=== PATIENT | male | born 1965 | race Caucasian/White ===

== ENCOUNTER 2021-01-09 21:09 | Inpatient (IN) | payer BC ==
[2021-01-09] MEDS ORDERED: Aspirin Chewable 81 MG TAB ONE (21:40)
[2021-01-09 21:44] LABS: #Eosinphils 0.2 10x3/uL (0.0-0.5); #Monocytes 0.6 10x3/uL (0.0-1.1); #Neutrophils 4.6 10x3/uL (1.5-8.4); %Basophils 0.4 % (0.0-2.0); %Eosinophils 3.3 % (0.0-6.0); %Lymphocytes 22.8 % (18.0-47.0); %Monocytes 8.3 % (0.0-10.0); %Neutrophils 64.9 % (40.0-75.0); Hemoglobin 14.2 g/dL (13.5-17.5); Mean Corpuscular HGB CONC 34.1 g/dL (32.0-36.0); Mean Corpuscular Hemoglobin 29.8 pg (27.0-33.0); Mean Corpuscular Volume 87.6 fl (81.2-95.1); Platelet Count 290 10x3/uL (150-450); RBC Distribution Width 12.2 % (11.5-14.5); Red Blood Cell (RBC) Count 4.76 10x6/uL (4.32-5.72); White Blood Cell (WBC) Count 7.1 10x3/uL (3.5-10.5)
[2021-01-09] MEDS ORDERED: Nitroglycerin 2% Ointment 1 INCH/1 GM Packet ONE (21:46)
[2021-01-09 21:54] LABS: ALT (SGPT) 26 U/L (8-55); AST (SGOT) 17 U/L (5-34); Alkaline Phosphatase 78 U/L (40-110); Anion Gap 12 mmol/L (10-20); BUN (Urea Nitrogen) 14 mg/dL (8.4-25.7); Bilirubin, Total 0.6 mg/dL (0.2-1.2); Calc. Creatinine Clearance 0 mL/min (70-130); Calcium 8.7 mg/dL (7.8-10.44); Carbon Dioxide 25 mmol/L (22-29); Chloride 104 mmol/L (98-107); Globulin 2.9 g/dL (2.4-3.5); Glucose 302 mg/dL (70-105); Lipase 37 U/L (8-78); Potassium 4.4 mmol/L (3.5-5.1); Protein, Total 6.9 g/dL (6.0-8.3); Sodium 137 mmol/L (136-145)
[2021-01-09] MEDS ORDERED: Nitroglycerin 0.4 MG TAB (25 Tab Bottle) SL PRN (23:57)
[2021-01-10] MEDS ORDERED: HumaLOG 300 UNITS/3 ML VIAL SC PRN ×3 (00:12→10:19)
[2021-01-10] MEDS ORDERED: Dextrose 50% Abboject 50 ML SYRINGE SLOW IVP PRN (00:12)
[2021-01-10] MEDS ORDERED: Dextrose 5% in Water 1,000 ML IV PRN (00:12)
[2021-01-10 00:58] VITALS: BMI 30.4
[2021-01-10] MEDS ORDERED: metFORMIN 500 MG TAB PO SCH (01:15)
[2021-01-10] MEDS ORDERED: Carvedilol 6.25 MG TAB PO SCH ×2 (01:15→08:00)
[2021-01-10] MEDS ORDERED: TICAGRELOR 90 MG TABLET PO SCH (01:15)
[2021-01-10] MEDS ORDERED: Rosuvastatin 20 MG TAB PO SCH ×2 (01:15→21:00)
[2021-01-10] MEDS ORDERED: Nitroglycerin 2% Ointment 1 INCH/1 GM Packet TOP SCH (02:00)
[2021-01-10 04:24] LABS: #Eosinphils 0.2 10x3/uL (0.0-0.5); #Monocytes 0.5 10x3/uL (0.0-1.1); #Neutrophils 3.1 10x3/uL (1.5-8.4); %Basophils 0.5 % (0.0-2.0); %Eosinophils 4.2 % (0.0-6.0); %Lymphocytes 30.6 % (18.0-47.0); %Monocytes 9.3 % (0.0-10.0); Mean Corpuscular Hemoglobin 29.8 pg (27.0-33.0); Mean Corpuscular Volume 87.6 fl (81.2-95.1); Platelet Count 267 10x3/uL (150-450); RBC Distribution Width 12.3 % (11.5-14.5); Red Blood Cell (RBC) Count 4.36 10x6/uL (4.32-5.72); White Blood Cell (WBC) Count 5.7 10x3/uL (3.5-10.5)
[2021-01-10 04:47] LABS: Anion Gap 12 mmol/L (10-20); BUN (Urea Nitrogen) 16 mg/dL (8.4-25.7); Calc. Creatinine Clearance 117 mL/min (70-130); Calcium 8.4 mg/dL (7.8-10.44); Carbon Dioxide 23 mmol/L (22-29); Cardiac Risk 3.5 (Less than 4.5); Chloride 107 mmol/L (98-107); Cholesterol 122 mg/dl (< 200 Desired); Glucose 335 mg/dL (70-105); HDL Cholesterol 35 mg/dL (>60 Neg Risk); LDL Cholesterol, Calculated 42 mg/dL; Potassium 4.1 mmol/L (3.5-5.1); Sodium 138 mmol/L (136-145); Triglycerides 226 mg/dL (Less than 150)
[2021-01-10 04:53] LABS: Troponin I Less than 0.010 ng/mL (< 0.028)
[2021-01-10] MEDS ORDERED: HumaLOG 300 UNITS/3 ML VIAL SC SCH (05:30)
[2021-01-10] MEDS: Acetaminophen 325 MG TAB PO PRN ×3 (06:37→20:28)
[2021-01-10] MEDS: metFORMIN 500 MG TAB PO SCH ×2 (09:43→16:03)
[2021-01-10] MEDS: Carvedilol 6.25 MG TAB PO SCH ×2 (09:43→16:03)
[2021-01-10] MEDS: Nitroglycerin 2% Ointment 1 INCH/1 GM Packet TOP SCH ×3 (09:43→20:30)
[2021-01-10] MEDS: Aspirin Chewable 81 MG TAB PO SCH (09:43)
[2021-01-10] MEDS: TICAGRELOR 90 MG TABLET PO SCH ×2 (09:44→20:28)
[2021-01-10] MEDS: Enoxaparin Sodium 40 MG/0.4 ML SYRINGE SC SCH (09:44)
[2021-01-10] MEDS: Sodium Chloride 0.9% 1,000 ML IV SCH (16:02)
[2021-01-10] MEDS ORDERED: predniSONE 20 MG TAB PO SCH (18:00)
[2021-01-10 18:25] LABS: SARS-CoV-2 PCR by NAA Not Detected (NotDetected)
[2021-01-10] MEDS ORDERED: Lantus 1000 UNITS/10 ML VIAL SC SCH (21:00)
[2021-01-11] MEDS: Sodium Chloride 0.9% 1,000 ML IV SCH ×2 (01:23→08:29)
[2021-01-11] MEDS: Aspirin Chewable 81 MG TAB PO SCH (06:07)
[2021-01-11] MEDS: TICAGRELOR 90 MG TABLET PO SCH (06:07)
[2021-01-11] MEDS: Carvedilol 6.25 MG TAB PO SCH (06:08)
[2021-01-11] MEDS: metFORMIN 500 MG TAB PO SCH ×2 (07:53→14:44)
[2021-01-11] MEDS: Nitroglycerin 2% Ointment 1 INCH/1 GM Packet TOP SCH ×2 (07:53→14:44)
[2021-01-11] MEDS: Enoxaparin Sodium 40 MG/0.4 ML SYRINGE SC SCH (07:54)
[2021-01-11] MEDS ORDERED: Famotidine/PF 20 mg/2ml Vial SLOW IVP SCH (08:00)
[2021-01-11] MEDS ORDERED: diphenhydrAMINE 25 MG CAP PO SCH (08:00)
[2021-01-11] MEDS ORDERED: predniSONE 20 MG TAB PO SCH (08:00)
[2021-01-11 08:23] LABS: Hemoglobin 13.1 g/dL (13.5-17.5); Mean Corpuscular HGB CONC 34.3 g/dL (32.0-36.0); Mean Corpuscular Hemoglobin 29.6 pg (27.0-33.0); Mean Corpuscular Volume 86.4 fl (81.2-95.1); Mean Platelet Volume 9.7 fl (7.4-10.4); Platelet Count 271 10x3/uL (150-450); RBC Distribution Width 11.9 % (11.5-14.5); Red Blood Cell (RBC) Count 4.42 10x6/uL (4.32-5.72); White Blood Cell (WBC) Count 10.2 10x3/uL (3.5-10.5)
[2021-01-11 08:29] LABS: Prothrombin Time 11.5 sec (9.5-12.1)
[2021-01-11 08:30] LABS: Anion Gap 14 mmol/L (10-20); BUN (Urea Nitrogen) 17 mg/dL (8.4-25.7); Calc. Creatinine Clearance 138 mL/min (70-130); Calcium 8.4 mg/dL (7.8-10.44); Carbon Dioxide 22 mmol/L (22-29); Chloride 108 mmol/L (98-107); Glucose 187 mg/dL (70-105); Potassium 4.2 mmol/L (3.5-5.1); Sodium 140 mmol/L (136-145)
[2021-01-11] MEDS ORDERED: Lidocaine 1% PF 5 ML VIAL ONE (08:37)
[2021-01-11] MEDS ORDERED: Nitroglycerin 50 MG/250 ML BOT 250 ML ONE (08:37)
[2021-01-11] MEDS ORDERED: Heparin 10,000 UNITS/ 10 ML VIAL ONE (08:37)
[2021-01-11] MEDS ORDERED: Midazolam HCl 5 mg/5 ml Vial ONE (08:38)
[2021-01-11] MEDS ORDERED: Sodium Chloride 0.9% 1,000 ML ONE (08:39)
[2021-01-11] MEDS ORDERED: Fentanyl 100 MCG/2 ML VIAL ONE (08:39)
[2021-01-11] MEDS ORDERED: Adenosine 6 MG/2 ML VIAL ONE (08:39)
[2021-01-11] MEDS ORDERED: Verapamil 5 MG/2 ML VIAL ONE (08:39)
[2021-01-11] MEDS ORDERED: Bivalirudin 250 MG VIAL ONE (08:39)
[2021-01-11] MEDS ORDERED: Acetaminophen/Codeine 30-300mg Tablet PO PRN ×2 (11:10)
[2021-01-11] MEDS ORDERED: Sodium Chloride 0.9% 200 ML IV PRN (11:10)
[2021-01-11] MEDS ORDERED: Nitroglycerin 0.4 MG TAB (25 Tab Bottle) SL PRN (11:10)
[2021-01-11 15:42] VITALS: BP 118/70; TEMP 98
[2021-01-11] MEDS ORDERED: Ezetimibe 10 MG TAB PO SCH (21:00)
== END 2021-01-11 18:38 | disposition home or self-care (01) | DRG 247 ==
LOC: CSHERS 21:09 → CSHTELE 01-10 00:54 → OBSVTOIN 01-10 12:38
PROVIDERS: ADMIT Family Medicine; ATTEND Internal Medicine
PROC: 4A023N7 Measurement of Cardiac Sampling and Pressure, Left Heart, Percutaneous Approach (ICD-10-PCS; principal; 2021-01-11)
PROC: 027135Z Dilation of Coronary Artery, Two Arteries with Two Drug-eluting Intraluminal Devices, Percutaneous Approach (ICD-10-PCS; 2021-01-11)
PROC: B2111ZZ Fluoroscopy of Multiple Coronary Arteries using Low Osmolar Contrast (ICD-10-PCS; 2021-01-11)
PROC: B2161ZZ Fluoroscopy of Right and Left Heart using Low Osmolar Contrast (ICD-10-PCS; 2021-01-11)
PROC: B241ZZ3 Ultrasonography of Multiple Coronary Arteries, Intravascular (ICD-10-PCS; 2021-01-11)
DX: I25.110 Atherosclerotic heart disease of native coronary artery with unstable angina pectoris (principal); Q24.5 Malformation of coronary vessels; Z20.822 Contact with and (suspected) exposure to COVID-19; I10 Essential (primary) hypertension; R78.5 Finding of other psychotropic drug in blood; Z95.5 Presence of coronary angioplasty implant and graft; Z88.8 Allergy status to other drugs, medicaments and biological substances; Z91.013 Allergy to seafood; I34.0 Nonrheumatic mitral (valve) insufficiency; I25.2 Old myocardial infarction; E11.65 Type 2 diabetes mellitus with hyperglycemia; Z79.4 Long term (current) use of insulin; Z79.899 Other long term (current) drug therapy
CPT/HCPCS: 36415; 36416; 71045; 80048; 80053; 80061; 83690; 83735; 84484; 85025; 85027; 85347; 85610; 92928; 92978; 92979; 93005; 93010; 93306; 93458; 94760; 96372; 99152; 99153; C1753; C1887; C9600; G0378; J0153; J0583; J1644; J1650; J1815; J2250; J3010; J7050; J7512; Q0163; S0028; U0003; U0005

== ENCOUNTER 2022-05-22 11:02 | Observation (INO) | payer BC ==
[2022-05-22 11:56] LABS: #Basophils 0.1 10x3/uL (0.0-0.2); #Eosinphils 0.2 10x3/uL (0.0-0.5); #Monocytes 0.4 10x3/uL (0.0-1.1); #Neutrophils 3.6 10x3/uL (1.5-8.4); %Basophils 0.9 % (0.0-2.0); %Eosinophils 3.1 % (0.0-6.0); %Monocytes 7.6 % (0.0-10.0); %Neutrophils 62.2 % (40.0-75.0); Hemoglobin 15.3 g/dL (13.5-17.5); Mean Corpuscular HGB CONC 34.9 g/dL (32.0-36.0); Mean Corpuscular Volume 86.1 fl (81.2-95.1); Mean Platelet Volume 10.2 fl (7.4-10.4); Platelet Count 254 10x3/uL (150-450); White Blood Cell (WBC) Count 5.8 10x3/uL (3.5-10.5)
[2022-05-22] MEDS ORDERED: Aspirin Chewable 81 MG TAB ONE (12:19)
[2022-05-22] MEDS ORDERED: Nitroglycerin 2% Ointment 1 INCH/1 GM Packet ONE (12:19)
[2022-05-22] MEDS ORDERED: Acetaminophen 500 MG TAB ONE (12:19)
[2022-05-22 12:35] LABS: ALT (SGPT) 38 U/L (8-55); AST (SGOT) 25 U/L (5-34); Albumin 4.1 g/dL (3.5-5.0); Alkaline Phosphatase 75 U/L (40-110); Anion Gap 16 mmol/L (10-20); BUN (Urea Nitrogen) 17 mg/dL (8.4-25.7); Bilirubin, Total 0.8 mg/dL (0.2-1.2); Calc. Creatinine Clearance 0 mL/min (70-130); Calcium 9.5 mg/dL (7.8-10.44); Carbon Dioxide 24 mmol/L (22-29); Chloride 102 mmol/L (98-107); Estimated GFR 72; Globulin 2.7 g/dL (2.4-3.5); Glucose 436 mg/dL (70-105); Lipase 24 U/L (8-78); Potassium 4.9 mmol/L (3.5-5.1); Protein, Total 6.8 g/dL (6.0-8.3); Sodium 137 mmol/L (136-145)
[2022-05-22 12:57] LABS: CK (CPK) 44 U/L (30-200)
[2022-05-22] MEDS ORDERED: Ondansetron PF 4 MG/2 ML Vial IVP PRN (13:38)
[2022-05-22] MEDS ORDERED: Acetaminophen 325 MG TAB PO PRN (13:38)
[2022-05-22] MEDS ORDERED: Ondansetron ODT 4 MG TAB PO PRN (13:38)
[2022-05-22 14:02] LABS: Magnesium 1.9 mg/dL (1.6-2.6)
[2022-05-22] MEDS ORDERED: Insulin Regular 300 UNITS/3 ML VIAL ONE (14:03)
[2022-05-22 14:41] LABS: SARS-CoV-2 NAA Rapid Test Not Detected (NotDetected)
[2022-05-22] MEDS ORDERED: Rosuvastatin 20 MG TAB PO SCH (21:00)
[2022-05-22] MEDS: Carvedilol 6.25 MG TAB PO SCH (21:14)
[2022-05-22] MEDS: TICAGRELOR 90 MG TABLET PO SCH (21:14)
[2022-05-22 21:20] VITALS: BMI 28.5
[2022-05-23 05:50] LABS: #Eosinphils 0.2 10x3/uL (0.0-0.5); #Monocytes 0.6 10x3/uL (0.0-1.1); #Neutrophils 3.1 10x3/uL (1.5-8.4); %Basophils 0.5 % (0.0-2.0); %Eosinophils 3.6 % (0.0-6.0); %Lymphocytes 32.1 % (18.0-47.0); %Monocytes 10.4 % (0.0-10.0); %Neutrophils 53.1 % (40.0-75.0); Hemoglobin 13.9 g/dL (13.5-17.5); Mean Corpuscular HGB CONC 35.5 g/dL (32.0-36.0); Mean Corpuscular Hemoglobin 30.5 pg (27.0-33.0); Mean Corpuscular Volume 86.2 fl (81.2-95.1); Platelet Count 242 10x3/uL (150-450); Red Blood Cell (RBC) Count 4.55 10x6/uL (4.32-5.72); White Blood Cell (WBC) Count 5.8 10x3/uL (3.5-10.5)
[2022-05-23 06:15] LABS: Anion Gap 13 mmol/L (10-20); BUN (Urea Nitrogen) 20 mg/dL (8.4-25.7); Calc. Creatinine Clearance 94 mL/min (70-130); Calcium 8.7 mg/dL (7.8-10.44); Carbon Dioxide 25 mmol/L (22-29); Cardiac Risk 4.2 (Less than 4.5); Chloride 105 mmol/L (98-107); Cholesterol 130 mg/dl (< 200 Desired); Estimated GFR 75; Glucose 300 mg/dL (70-105); HDL Cholesterol 31 mg/dL (>60 Neg Risk); LDL Cholesterol, Calculated 28 mg/dL; Sodium 139 mmol/L (136-145); Triglycerides 354 mg/dL (Less than 150)
[2022-05-23] MEDS ORDERED: Dextrose 50% Abboject 50 ML SYRINGE SLOW IVP PRN (07:56)
[2022-05-23] MEDS ORDERED: Dextrose 5% in Water 1,000 ML IV PRN (07:56)
[2022-05-23] MEDS ORDERED: HumaLOG 300 UNITS/3 ML VIAL SC PRN (07:56)
[2022-05-23] MEDS ORDERED: Aspirin Chewable 81 MG TAB PO SCH (09:00)
[2022-05-23] MEDS ORDERED: Enoxaparin Sodium 40 MG/0.4 ML SYRINGE SC SCH (09:00)
[2022-05-23] MEDS: TICAGRELOR 90 MG TABLET PO SCH (09:31)
[2022-05-23] MEDS: Carvedilol 6.25 MG TAB PO SCH (09:40)
[2022-05-23 11:43] VITALS: BP 149/82; TEMP 98
[2022-05-23 15:01] LABS: Hemoglobin A1c Greater than 14.0 % (4.0-6.0)
== END 2022-05-23 15:30 | disposition home or self-care (01) ==
LOC: CSHERS 11:02 → CSHTELE 18:57
PROVIDERS: ADMIT Family Medicine; ATTEND Student in an Organized Health Care Education/Training Program
DX: R07.9 Chest pain, unspecified (principal); R42 Dizziness and giddiness; R00.2 Palpitations; I25.10 Atherosclerotic heart disease of native coronary artery without angina pectoris; I11.9 Hypertensive heart disease without heart failure; E78.5 Hyperlipidemia, unspecified; E11.9 Type 2 diabetes mellitus without complications; I34.0 Nonrheumatic mitral (valve) insufficiency; I25.2 Old myocardial infarction; E66.9 Obesity, unspecified; Z79.84 Long term (current) use of oral hypoglycemic drugs; Z79.899 Other long term (current) drug therapy; Z88.8 Allergy status to other drugs, medicaments and biological substances; Z20.822 Contact with and (suspected) exposure to COVID-19; Z95.5 Presence of coronary angioplasty implant and graft; Z98.890 Other specified postprocedural states
CPT/HCPCS: 36415; 36416; 71045; 80048; 80053; 80061; 82550; 83036; 83690; 83735; 84443; 84484; 85025; 85379; 93005; 93306; 94760; 96372; 96374; G0378; J1650; J1815; U0002

== ENCOUNTER 2023-02-05 19:45 | Emergency (ER) | payer BC ==
[2023-02-05] MEDS ORDERED: Metoclopramide HCl 10 MG/2 ML VIAL ONE (20:31)
[2023-02-05] MEDS ORDERED: Ketorolac Tromethamine 30 MG/ML VIAL ONE (20:31)
[2023-02-05 20:38] LABS: #Monocytes 0.6 10x3/uL (0.0-1.1); #Neutrophils 5.3 10x3/uL (1.5-8.4); %Basophils 0.5 % (0.0-2.0); %Eosinophils 0.2 % (0.0-6.0); %Lymphocytes 9.5 % (18.0-47.0); %Monocytes 8.4 % (0.0-10.0); %Neutrophils 80.8 % (40.0-75.0); Hemoglobin 14.6 g/dL (13.5-17.5); Mean Corpuscular HGB CONC 34.9 g/dL (32.0-36.0); Mean Corpuscular Hemoglobin 29.8 pg (27.0-33.0); Mean Corpuscular Volume 85.3 fl (81.2-95.1); Mean Platelet Volume 9.9 fl (7.4-10.4); Platelet Count 230 10x3/uL (150-450); RBC Distribution Width 12.2 % (11.5-14.5); White Blood Cell (WBC) Count 6.5 10x3/uL (3.5-10.5)
[2023-02-05 20:50] LABS: ALT (SGPT) 40 U/L (8-55); AST (SGOT) 40 U/L (5-34); Alkaline Phosphatase 72 U/L (40-110); Anion Gap 17 mmol/L (10-20); BUN (Urea Nitrogen) 13 mg/dL (8.4-25.7); Calc. Creatinine Clearance 0 mL/min (70-130); Calcium 8.7 mg/dL (7.8-10.44); Carbon Dioxide 20 mmol/L (22-29); Chloride 101 mmol/L (98-107); Estimated GFR 87; Globulin 2.7 g/dL (2.4-3.5); Glucose 302 mg/dL (70-105); Protein, Total 6.7 g/dL (6.0-8.3); Sodium 134 mmol/L (136-145)
[2023-02-05 21:45] LABS: Bilirubin Neg (Negative); Blood, Urine 10 (Negative); Clarity Clear (Clear); Glucose, Urine (Dipstick) >=1000 mg/dL (Negative); Ketone, Urine 150 mg/dL (Negative); Leukocyte Negative (Negative); Nitrite Negative (Negative); Protein, Urine (Dipstick) 30 mg/dl (Neg-Trace); Specific Gravity, Urine 1.025 (1.005-1.030); Urobilinogen Normal mg/dL (Less than 2)
[2023-02-05 21:56] LABS: Bacteria/HPF None Seen HPF (None Seen); CAUTI Indications for Culture Fever or rigors; RBC/HPF 0-3 HPF (0-3); Squamous Epithelial 0-3 HPF (0-3); WBC/HPF None Seen HPF (0-3)
[2023-02-05 21:57] LABS: Urine Culture Reflex No No
[2023-02-05 22:23] LABS: SARS-CoV-2 NAA Rapid Test Not Detected (NotDetected)
== END 2023-02-05 23:32 | disposition home or self-care (01) ==
LOC: CSHERS 19:45
DX: B34.9 Viral infection, unspecified (principal); I25.10 Atherosclerotic heart disease of native coronary artery without angina pectoris; E11.9 Type 2 diabetes mellitus without complications; I10 Essential (primary) hypertension; E78.5 Hyperlipidemia, unspecified; Z20.822 Contact with and (suspected) exposure to COVID-19
CPT/HCPCS: 36415; 71045; 80053; 81001; 83605; 84484; 85025; 87040; 87077; 87149; 87186; 93005; 93010; 96374; 96375; J1885; J2765